=== PATIENT | female | born 1990 | race Caucasian/White ===

== ENCOUNTER 2019-06-20 12:05 | Emergency (ER) | payer MEDICAID ==
[~2019-06-20] VITALS: Ht 160 cm; Wt 49.9 kg
[2019-06-20 12:09] VITALS: BP 105/71
[2019-06-20] MEDS ORDERED: MORPHINE SULFATE 4 MG/ML SYR IM ONE ×2 (12:10→13:20)
[2019-06-20] MEDS ORDERED: KETOROLAC 60 MG/2 ML VIAL IM ONE (13:30)
[2019-06-20] MEDS ORDERED: IBUP-2213 PO (14:37)
[2019-06-20] MEDS ORDERED: GABA400C PO (14:37)
[2019-06-20 14:59] VITALS: BP 117/51
== END 2019-06-20 14:58 | disposition home or self-care (01) ==
LOC: MED 12:05
DX: M25.551 Pain in right hip (principal); G80.9 Cerebral palsy, unspecified; Z86.69 Personal history of other diseases of the nervous system and sense organs; Z98.890 Other specified postprocedural states
CPT/HCPCS: 81002; 96372; 99283; J1885; J2270